=== PATIENT | female | born 1975 | race Native Hawaiian/Other Pacific Islander ===

== ENCOUNTER 2019-04-28 21:30 | Observation (INO) | payer OTHER, BC ==
[~2019-04-28] VITALS: Ht 160 cm; Wt 65.8 kg
[2019-04-28 21:40] VITALS: BP 143/90; TEMP 98.5
[2019-04-28 22:15] VITALS: BP 134/74
[2019-04-28 22:45] VITALS: BP 124/65
[2019-04-28 23:11] LABS: POTASSIUM 3.7 mmol/L (3.6-5.2)
[2019-04-28 23:15] VITALS: BP 117/66
[2019-04-28 23:15] LABS: PLATELET COUNT 227 K/uL (152-353)
[2019-04-28 23:45] VITALS: BP 124/76
[2019-04-29 00:36] VITALS: BP 117/70; TEMP 97.8; Ht 160 cm; Wt 65.8 kg
[2019-04-29] MEDS ORDERED: DULO60CA2 PO (01:18)
[2019-04-29 04:00] VITALS: BP 90/55; TEMP 97.7
[2019-04-29 05:18] LABS: PLATELET COUNT 206 K/uL (152-353)
[2019-04-29 05:40] LABS: POTASSIUM 4.1 mmol/L (3.6-5.2)
[2019-04-29 08:00] VITALS: BP 92/56; TEMP 97.6
== END 2019-04-29 12:30 | disposition home or self-care (01) ==
LOC: ED 21:30 → MED/SURG 23:30
PROVIDERS: Internal Medicine; ADMIT Internal Medicine
DX: S06.0X0A Concussion without loss of consciousness, initial encounter (principal); V49.49XA Driver injured in collision with other motor vehicles in traffic accident, initial encounter; Y92.89 Other specified places as the place of occurrence of the external cause; R51 Headache; R11.2 Nausea with vomiting, unspecified
CPT/HCPCS: 36415; 80053; 85027; 96360; 96365; 96366; 96375; 96376; 99220; 99284; G0378; J2270; J2405